=== PATIENT | female | born 2000 | race Caucasian/White ===

== ENCOUNTER 2023-04-08 15:06 | Emergency (ER) | payer OTHER, MEDICAID ==
[~2023-04-08] VITALS: Ht 167.6 cm; Wt 86.2 kg
[2023-04-08 15:13] VITALS: BP_SYST 128; PULSE 67; RESP 18; TEMP 98.3; O2SAT 98
[2023-04-08] MEDS ORDERED: SOM350 PO (17:20)
[2023-04-08] MEDS ORDERED: IBUP-1969 PO (17:20)
[2023-04-08 17:34] VITALS: BP_SYST 125; PULSE 68; RESP 18; TEMP 98.3; O2SAT 98
== END 2023-04-08 17:34 | disposition home or self-care (01) ==
LOC: SED 15:06
DX: S16.1XXA Strain of muscle, fascia and tendon at neck level, initial encounter (principal); Z79.899 Other long term (current) drug therapy; V89.2XXA Person injured in unspecified motor-vehicle accident, traffic, initial encounter; Y93.89 Activity, other specified; Y92.89 Other specified places as the place of occurrence of the external cause; Y99.8 Other external cause status
CPT/HCPCS: 71045; 72040-TC; 81025; 99284